=== PATIENT | male | born 1985 | race Two or more races ===

== ENCOUNTER → 2025-08-11 | Outpatient (CLI) | payer OTHER, MEDICAID, SELFPAY ==
--- NOTE | 2025-08-11 11:00 | XR_ITS ---
Examination: Abdomen sonogram, complete Date and time of exam: August 11, 2025, 1110 hours INDICATIONS: Cirrhosis diagnosis, elevated liver function tests on laboratory examination 1 month ago. Technique: Multiple real-time grayscale transabdominal sonographic images of the abdomen have been obtained. Findings: Normal gallbladder Normal common bile duct 0.5 cm Pancreatic head 2.6 cm Aorta not enlarged Liver 14.2 cm fatty infiltration no focal liver lesions Normal hepatopetal portal venous flow Patent IVC Right kidney 11.9 cm renal cortex 2.1 cm Left kidney 12.3 cm renal cortex 2.1 cm Mild renal scar formation Spleen 12.5 cm IMPRESSION: Normal gallbladder Liver normal size no focal liver lesions
== END | disposition home or self-care (01) ==
PROVIDERS: PCP Family Medicine; Referring Provider Colon & Rectal Surgery; Visit Provider Colon & Rectal Surgery
DX: R10.11 Right upper quadrant pain (principal)
CPT/HCPCS: 76700